=== PATIENT | female | born 1985 | race Caucasian/White ===

== ENCOUNTER 2016-09-06 06:04 | Inpatient (IN) ==
[2016-09-06] MEDS ORDERED: CITRIC ACID/SODIUM CITRATE 30 ML UDCUP PO ONE (06:30)
[2016-09-06] MEDS ORDERED: FAMOTIDINE 20 MG/2 ML VIAL IV ONE (06:30)
[2016-09-06] MEDS: LACTATED RINGERS 1,000 ML IV SCH ×4 (06:40→22:36)
[2016-09-06 06:54] LABS: Basophils % 0.3 % (0.0-0.8); Eosinophils # 0.6 10*3/uL (0.0-0.87); Eosinophils % 5.4 % (0.00-10.9); Hematocrit 36.3 VOL% (35.7-47.0); Hemoglobin 12.5 GM/DL (12.0-16.0); Immature Granulocytes % 1.2 %; Immature Granulocytes Absolute 0.14 #; Lymphocytes # 3.8 10*3/uL (1.4-4.0); Lymphocytes % 32.4 % (21.3-54.2); Mean Corpuscular HGB Conc 34.4 GM/DL (32-36); Mean Corpuscular Hemoglobin 29 PG (27-34); Mean Corpuscular Volume 85.4 FL (87-102); Mean Platelet Volume 9.6 FL (9.6-12.0); Monocytes # 0.7 10*3/uL (0.11-0.8); Monocytes % 5.9 % (1.7-12.7); Neutrophils # 6.5 10*3/uL (1.4-7.4); Neutrophils % 54.8 % (38.7-73.9); Platelet Count 217 T/CUMM (130-400); Red Blood Count 4.25 MC/CUMM (3.8-5.5); Red Cell Distribution Width 13.7 % (9.3-17.3); White Blood Count 11.8 T/CUMM (4-12)
[2016-09-06 07:31] LABS: Albumin 2.5 G/DL (3.4-5.0); Bilirubin,Total 0.7 MG/DL (0.2-1.0); Calcium 8.3 MG/DL (8.5-10.1); Osmolality,Calculated 274.5 MOS/KG (273-304); Total Protein 6.2 G/DL (6.4-8.3)
--- NOTE | 2016-09-06 08:09 | History and Physical Update ---
History and Physical Update - History and Physical H&P was reviewed, the patient examined and there: are no changes in the patients condition since last H&P was completed.
[2016-09-06] MEDS ORDERED: CLINDAMYCIN INJ 900 MG in PREMIX 1 EACH IV ONE (08:30)
[2016-09-06] MEDS ORDERED: OXYTOCIN/LR 20 UNIT/1,000 ML BAG IV ONE ×2 (08:32→10:33)
[2016-09-06] MEDS ORDERED: GLYCOPYRROLATE 0.4 MG/2 ML VIAL ONE (09:28)
[2016-09-06] MEDS ORDERED: ONDANSETRON 4 MG/2 ML VIAL ONE (09:28)
[2016-09-06] MEDS ORDERED: PHENYLEPHRINE 1 MG/10 ML SYRINGE IV ONE (09:28)
[2016-09-06] MEDS ORDERED: ACETAMINOPHEN 325 MG TABLET PO PRN (10:33)
[2016-09-06] MEDS ORDERED: ONDANSETRON 4 MG/2 ML VIAL IV PRN (10:33)
--- NOTE | 2016-09-06 10:33 | Operative Note ---
Date of procedure: 09/06/16 Procedure Preformed: Following informed consent patient taken to the operating room where spinal anesthesia was administered without difficulty. She is prepped and draped in usual fashion placed in dorsal supine position with a leftward tilt. A Pfannenstiel skin incision made with scalpel and carried through to the underlying layer fascia with Bovie. The fascia with incision was excised midlines to lateral with Peña scissors. The inferior and superior aspects of the fascial incision were grasped with Norco clamps, elevated and the rectus muscles dissected off bluntly. The rectus muscles were then midline and the peritoneum identified and entered with Metzenbaum scissors. The cyst extends purely inferiorly with good visualization of the bladder. Bladder blade was then reinserted and the uterus incised in transverse fashion with scalpel. It was head was atraumatically. The nose mouth bulb suctioned. Cord clamped cut and the handed off to waiting nurses. Cord blood was sent. The placenta was then removed manually and the uterus cleared all clots and debris. The uterine incision with #1 Vicryl in a running locked fashion. A second layer same suture was used to obtain hemostasis. The gutters and cleared of all clots and debris and once again hemostasis will be satisfactory. Therefore all instruments from the abdomen. The fascia was repaired with [0] Vicryl in a running fashion. Skin pleasant and soft jennifer. At the end of the procedure all sponge lap needle counts correct 2. Baby and mother in stable condition. Surgeon / Physician: Priya Watts Post-op diagnosis: same Findings: Liveborn male infant weight 9 lbs. 3 oz. Apgars 8 9 Specimens: none sent Estimated blood loss: other (400 mL) Condition: stable Anesthesia: spinal Disposition: floor
--- NOTE | 2016-09-06 10:48 | Anesthesia Post-Op ---
Anesthesia Post OP - Post Ansesthetic Evaluation Patient seen in post op: Yes Resp: within normal limits CV: within normal limits Mental: within normal limits Temp: within normal limits [id number]: within normal limits Nausea and Vomiting: within normal limits Pain: within normal limits
[2016-09-06] MEDS ORDERED: fentaNYL 100 MCG/2 ML VIAL ONE (10:57)
[2016-09-06] MEDS ORDERED: MORPHINE 10 MG/10 ML VIAL ONE (10:57)
[2016-09-06] MEDS ORDERED: LACTATED RINGERS 1,000 ML IV SCH (11:00)
[2016-09-06] MEDS ORDERED: RHO(D) IMMUNE GLOBULIN 300 MCG SYRINGE IM ONE (11:00)
[2016-09-06 11:09] LABS: Apearance,Urine CLEAR (Clear); Bacteria,Urine Occasional /HPF (Few); Bilirubin,Urine Negative (Negative); Blood, Urine Negative (Negative); Glucose,Urine (UA) Negative (Negative); Ketones,Urine Negative (Negative); Mucus,Urine Occasional /LPF (Occasional); Nitrite,Urine Negative (Negative); Protein,Urine Negative; RBC,Urine <1 /HPF (0-4); Urine Color Yellow (Yellow); Urine Specific Gravity 1.008 (1.001-1.035); Urine Urobilinogen < 2.0 EU/DL (0.2-1.0); WBC,Urine <1 /HPF (0-6)
[2016-09-06] MEDS: HYDROmorphone 2 MG/1 ML VIAL IV PRN ×2 (17:20→22:25)
[2016-09-06] MEDS: DOCUSATE SODIUM 100 MG CAPSULE PO SCH (21:37)
[2016-09-07] MEDS: IBUPROFEN 800 MG TABLET PO PRN ×3 (04:33→19:49)
[2016-09-07 06:07] LABS: Basophils % 0.2 % (0.0-0.8); Eosinophils # 0.2 10*3/uL (0.0-0.87); Eosinophils % 2.1 % (0.00-10.9); Hematocrit 34.5 VOL% (35.7-47.0); Hemoglobin 11.4 GM/DL (12.0-16.0); Immature Granulocytes % 0.9 %; Immature Granulocytes Absolute 0.09 #; Lymphocytes # 2.3 10*3/uL (1.4-4.0); Lymphocytes % 21.6 % (21.3-54.2); Mean Corpuscular Hemoglobin 29 PG (27-34); Mean Corpuscular Volume 87.1 FL (87-102); Mean Platelet Volume 9.5 FL (9.6-12.0); Monocytes # 0.8 10*3/uL (0.11-0.8); Neutrophils # 7.1 10*3/uL (1.4-7.4); Neutrophils % 67.2 % (38.7-73.9); Platelet Count 170 T/CUMM (130-400); Red Blood Count 3.96 MC/CUMM (3.8-5.5); Red Cell Distribution Width 13.7 % (9.3-17.3); White Blood Count 10.5 T/CUMM (4-12)
--- NOTE | 2016-09-07 08:54 | OB/GYN Progress Note ---
Assessment and Plan (1) delivery delivered Status: Acute Assessment and plan: Routine care Current Visit: Yes OUTREACH PROFESSIONAL - PN: Subj Interval history: No complaints Exam OUTREACH PROFESSIONAL - Constitutional Vitals: Vital Signs Temp Pulse Resp BP Pulse Ox 09/07/16 07:35 98 F 84 20 125/66 98 09/07/16 04:00 97.5 F L 95 H 20 117/72 98 09/07/16 00:00 97.4 F L 89 20 107/51 98 09/06/16 20:00 97.9 F 89 20 124/80 98 09/06/16 18:00 20 09/06/16 17:00 77 20 132/68 98 09/06/16 16:00 97.5 F L 77 20 121/65 98 09/06/16 15:00 73 20 123/67 99 09/06/16 14:30 69 20 126/76 99 09/06/16 14:00 97.2 F L 78 20 132/73 98 09/06/16 12:06 97 F L 79 18 132/53 99 09/06/16 11:03 98.3 F 91 H 20 108/52 94 L General appearance: no acute distress - Gyencological / Post Surgical Post Surgical Exam Extremities OUTREACH PROFESSIONAL: Present: normal Abdomen obstetrics progress note: Present: normal appearance, soft Incision OB: Present: normal, dry, intact - Head Head exam: Present: normocephalic - Respiratory Respiratory exam: Present: clear to auscultation bilaterally - Cardiovascular Cardiovascular exam: Present: regular rate and rhythm - GI/Abdominal GI/Abdominal exam: Present: normal bowel sounds, soft - Extremities Exam Extremities exam: Present: normal inspection - Back Exam Back exam: Present: normal inspection - Neurological Exam Neurological exam: Present: alert, oriented X3 - Psychiatric Psychiatric exam: Present: normal affect, normal mood Results - Labs CBC & BMP: 09/07/16 05:47 09/06/16 06:48
--- NOTE | 2016-09-07 08:56 | Discharge Summary ---
Hospital Course - Hospital Course Hospital Course: This is a 30-year-old female admitted at 39 weeks gestation for repeat section at term. Patient with history of previous section. Hospital course unremarkable Diagnosis - Discharge Diagnosis (1) delivery delivered Status: Acute Specialty Discharge - Follow Up or Referrals Follow up with: Priya Watts MD [Physician] - 09/18/16 10:00 am Discharge Plan - Discharge Data Disposition: Disch To Home/Self Care Condition at Discharge: Stable Discharge Diet: advance to your usual diet Activity: no lifting (Pelvic rest) Hygiene: may shower Weight Bearing at Discharge: weight bear as tolerated Driving: not until seen by doctor Contact your physician if you experience:: fever over 101, Difficulty voiding, Redness or swelling, Nausea/Vomiting, Shortness of breath, Bleeding, pain uncontrolled by pain medications - Discharge Medications New HYDROcodone/ACETAMIN 7.5-325 [Brush 7.5-325] 1 tablet PO Q6H #60 tablet No Action Multivitamin () [ Vitamin] 1 tablet PO DAILY tablet - Follow Up or Referral Follow Up: Priya Watts MD [Physician] - 09/18/16 10:00 am - Forms/Instructions Exam - Constitutional Vitals: Period Temp Pulse Resp BP Sys/Iqbal Pulse Ox Last 24 Hr 97 F-98.3 F 69-95 18-20 107-132/51-80 94-99 General appearance: no acute distress - Head Head exam: Present: normocephalic - ENT ENT exam: Present: normal exam - Neck Neck exam: Present: normal inspection - Respiratory Respiratory exam: Present: clear to auscultation bilaterally - Cardiovascular Cardiovascular exam: Present: regular rate and rhythm - GI/Abdominal GI/Abdominal exam: Present: normal bowel sounds, soft, other (Incision clean dry and intact) - Extremities Exam Extremities exam: Present: normal inspection - Back Exam Back exam: Present: normal inspection - Neurological Exam Neurological exam: Present: alert, oriented X3 - Psychiatric Psychiatric exam: Present: normal affect, normal mood - Skin Skin exam: Present: normal color, warm Discharge Results Labs on day of discharge: Labs from last 24 hours 09/07/16 09/06/16 05:47 10:00 WBC 10.5 RBC 3.96 Hgb 11.4 L Hct 34.5 L MCV 87.1 MCH 29 MCHC 33.0 RDW 13.7 Plt Count 170 D MPV 9.5 L Neut % (Auto) 67.2 Lymph % (Auto) 21.6 Door % (Auto) 8.0 Eos % (Auto) 2.1 Baso % (Auto) 0.2 Neut # (Auto) 7.1 Lymph # (Auto) 2.3 Door # (Auto) 0.8 Eos # (Auto) 0.2 Baso # (Auto) 0.0 Immature Gran % 0.9 Nucleated RBC % 0.0 Immature Gran # 0.09 Nucleated RBCs # 0.00 Urine Color Yellow Urine Appearance Clear Urine pH 7.0 Ur Specific Cisco 1.008 Urine Protein Negative Urine Glucose (UA) Negative Urine Ketones Negative Urine Blood Negative Urine Nitrate Negative Urine Bilirubin Negative Urine Urobilinogen < 2.0 H Urine Leukocytes Negative Urine RBC <1 Urine WBC <1 Urine Bacteria Occasional Urine Mucus Occasional Ur Culture Indicated? Not indicated DS: Provider Date of admission: 09/06/16 06:04 Primary care physician: . No PCP Attending physician on admission: Priya Watts MD Consults: 09/06/16 06:31 Consult to Anesthesiology [CONS] Routine Consulting Provider: Reason for Anesthesiology: Pre-op Clearance 09/06/16 10:33 Consult to Power Plant Operators Supervisor [CONS] Routine Consult Power Plant Operators Supervisor: Breast Feeding Discharging clinician: Priya Watts MD
[2016-09-07] MEDS: MAGNESIUM HYDROXIDE SUSP 30 ML UDCUP PO PRN ×2 (09:31→19:48)
[2016-09-07] MEDS: SIMETHICONE CHEW 80 MG TABLET PO PRN (09:31)
[2016-09-07] MEDS: MULTIVITAMIN (PRENATAL) TABLET PO SCH (09:31)
[2016-09-07] MEDS: DOCUSATE SODIUM 100 MG CAPSULE PO SCH ×3 (09:31→21:48)
[2016-09-08 07:35] VITALS: BP 117/61
[2016-09-08] MEDS: DOCUSATE SODIUM 100 MG CAPSULE PO SCH (09:25)
[2016-09-08] MEDS: MULTIVITAMIN (PRENATAL) TABLET PO SCH (09:30)
[2016-09-08] MEDS: SIMETHICONE CHEW 80 MG TABLET PO PRN (09:30)
[2016-09-08] MEDS: MAGNESIUM HYDROXIDE SUSP 30 ML UDCUP PO PRN (09:30)
[2016-09-08] MEDS: IBUPROFEN 800 MG TABLET PO PRN (09:50)
[2016-09-08] MEDS ORDERED: DIPH/TET/ACEL PERT BOOSTER VACCINE 0.5 ML VIAL IM ONE (10:30)
[2016-09-08] MEDS ORDERED: MEASLES/MUMPS/RUBELLA VACCINE 0.5 ML VIAL SUBCUT ONE (12:00)
== END 2016-09-08 13:40 | disposition home or self-care (01) | DRG 766 ==
LOC: N.LD 06:04 → N.OB 13:46
PROVIDERS: ADMIT Obstetrics & Gynecology; ATTEND Obstetrics & Gynecology
PROC: LDCSECT (ICD-10-PCS; 2016-09-06 09:30)